=== PATIENT | female | born 1985 | race Caucasian/White ===

== ENCOUNTER 2016-06-09 21:00 | Emergency (ER) | payer OTHER ==
[~2016-06-09] VITALS: Ht 165.1 cm; Wt 133.8 kg
[2016-06-09] MEDS ORDERED: NEXP1IMP SC (21:13)
[2016-06-09] MEDS ORDERED: BUSP5TA PO (21:13)
[2016-06-09] MEDS ORDERED: ONDANSETRON 4MG/2ML VIAL (J2405) IV ONE (21:30)
[2016-06-09] MEDS ORDERED: KETOROLAC 30 MG/ML VIAL (J1885) IV ONE (21:30)
[2016-06-09 22:00] LABS: BASO # 0.1 K/mm3 (0.0-0.2); BASO % 0.7 % (0.0-1.0); EOS # 0.4 K/mm3 (0.0-0.50); EOS % 4.2 % (0.0-3.0); LARGE UNSTAINED CELL # 0.1 K/mm3 (0.0-0.4); LARGE UNSTAINED CELL % 1.2 % (0.0-4.0); LYMPH # 2.6 K/mm3 (1.5-6.5); LYMPH % 26.7 % (24.0-44.0); MEAN CORPUSCULAR HEMOGLOBIN 29.3 pg (27.0-33.0); MEAN CORPUSCULAR HGB CONC 33.1 g/dl (32.0-36.5); MEAN CORPUSCULAR VOLUME 88.4 fl (80.0-96.0); MONO # 0.5 K/mm3 (0.0-0.8); MONO % 4.9 % (0.0-5.0); NEUTROPHILS # 5.8 K/mm3 (1.8-7.7); NEUTROPHILS % 62.3 % (36.0-66.0); PLATELET COUNT, AUTOMATED 317 k/mm3 (150-450); RED CELL DISTRIBUTION WIDTH 13.5 % (11.5-14.5); WHITE BLOOD COUNT 9.2 K/mm3 (4.0-10.0)
[2016-06-09 22:08] LABS: CONTROL LINE HCG INT CTR LINE PRESENT
[2016-06-09 22:15] LABS: ALBUMIN 3.8 GM/DL (3.2-5.2); ALBUMIN/GLOBULIN RATIO 1.03 (1.00-1.93); ALKALINE PHOSPHATASE 123 U/L (45-117); ALT/SGPT 30 U/L (12-78); ANION GAP 9 MEQ/L (8-16); AST/SGOT 16 U/L (15-37); BILIRUBIN,DIRECT 0.1 MG/DL (0.0-0.2); BILIRUBIN,TOTAL 0.3 MG/DL (0.2-1.0); BLOOD UREA NITROGEN 13 MG/DL (7-18); CALCIUM LEVEL 8.2 MG/DL (8.5-10.1); CARBON DIOXIDE LEVEL 27 MEQ/L (21-32); CHLORIDE LEVEL 105 MEQ/L (98-107); CREATININE FOR GFR 0.89 MG/DL (0.55-1.02); GLOMERULAR FILTRATION RATE > 60.0 (>60); GLUCOSE, FASTING 96 MG/DL (70-105); POTASSIUM SERUM 3.9 MEQ/L (3.5-5.1); SODIUM LEVEL 141 MEQ/L (136-145); TOTAL PROTEIN 7.5 GM/DL (6.4-8.2)
--- NOTE | 2016-06-09 23:10 | REPUSA ---
CT of the abdomen and pelvis without contrast Clinical statement: Pain. Technique: Multiple axial CT images were obtained from the base of the lungs to the floor of the pelv is utilizing 5 mm axial slices without administration of contrast. Coronal and sagittal reconstructio ns were also obtained. No comparison is available. Findings: Chest: The visualized lung bases are clear. Abdomen: The kidneys are normal in size bilaterally. There is no evidence of hydronephrosis. Multiple tiny stones are seen in the left kidney measuring up to 1 mm. The liver, spleen, pancreas, gallbladd er and adrenal glands are unremarkable. The aorta demonstrates normal caliber and contour. There is n o abdominal lymphadenopathy or ascites. Pelvis: The bowel is unremarkable, with no obstructive or inflammatory changes. The appendix is nick l. The urinary bladder is within normal limits. There is no pelvic lymphadenopathy or ascites. There is a low attenuation lesion in the right adnexa, measuring 3.3 x 3.7 cm. The other pelvic structures appear unremarkable. Bones: There are no suspicious osseous abnormalities seen. Impression: 1. No evidence of hydronephrosis. Nonobstructing left renal nephrolithiasis. 2. Simple right ovarian cyst. 3. No obstructive or inflammatory bowel changes.
[2016-06-09] MEDS ORDERED: CIPROFLOXACIN 500 MG TAB PO ONE (23:15)
[2016-06-09] MEDS ORDERED: CIPR500T89 PO (23:16)
[2016-06-09] MEDS ORDERED: IBUP600T26 PO (23:16)
[2016-06-09 23:31] VITALS: BP 110/62
== END 2016-06-09 23:33 | disposition home or self-care (01) ==
LOC: M ED 21:40
DX: N39.0 Urinary tract infection, site not specified (principal); Z79.899 Other long term (current) drug therapy; Z79.3 Long term (current) use of hormonal contraceptives; F17.210 Nicotine dependence, cigarettes, uncomplicated

== ENCOUNTER 2016-08-11 14:21 | Emergency (ER) | payer OTHER ==
[~2016-08-11] VITALS: Ht 165.1 cm; Wt 136.7 kg
[~2016-08-11 14:21] MED LIST: BUSP5TA PO; CIPR-249 PO; IBUP-1022 PO; NEXP1IMP SC
[2016-08-11] MEDS ORDERED: KETOROLAC 60 MG/2 ML VIAL (J1885) IM ONE (15:00)
--- NOTE | 2016-08-11 15:39 | REP ---
Clinical: Trauma. Technique: AP, lateral, bilateral oblique views of the left ankle. Findings: Soft tissue swelling noted. No acute fracture or dislocation. Joint spaces and ankle mortise intact. Impression: Soft-tissue swelling. No acute fracture or dislocation. Signed by Jamie Isaacs MD 08/11/2016 03:30 P
--- NOTE | 2016-08-11 15:40 | REP ---
Clinical: Trauma. Technique: AP, lateral, bilateral oblique views left foot . Findings: The osseous structures and joint spaces are intact and normal. There is no evidence for acute fracture or dislocation. Surrounding soft tissues are unremarkable. No subcutaneous emphysema or radiodense foreign body. Impression: Normal left foot radiographs . No acute fracture or dislocation. Signed by Jamie Isaacs MD 08/11/2016 03:31 P
[2016-08-11 15:49] VITALS: BP 138/76
[2016-08-11] MEDS ORDERED: PERC5TAB12 PO (16:04)
[2016-08-11] MEDS ORDERED: MOBI4TAB PO (16:04)
== END 2016-08-11 16:18 | disposition home or self-care (01) ==
LOC: M ED 14:21
DX: S93.402A Sprain of unspecified ligament of left ankle, initial encounter (principal); S93.602A Unspecified sprain of left foot, initial encounter; X50.1XXA Overexertion from prolonged static or awkward postures, initial encounter; Y92.099 Unspecified place in other non-institutional residence as the place of occurrence of the external cause; Y93.01 Activity, walking, marching and hiking; Y99.9 Unspecified external cause status

== ENCOUNTER → 2016-10-26 | Outpatient (CLI) | payer OTHER ==
[~2016-10-26] MED LIST changes: +MOBI4TAB PO; +PERC5TAB12 PO
--- NOTE | 2016-10-26 11:15 | REP ---
MRI RIGHT KNEE: TECHNIQUE: Axial proton density fat saturation, sagittal proton density T2 STIR, water excitation, coronal proton density, proton density fat saturation. Menisci appear intact with no evidence of a meniscal tear. The cruciate and collateral ligaments are intact. The extensor mechanism is intact. There does appear to be mild to moderate edema and mild fluid in the soft tissues anterior to the insertion site of the inferior patellar tendon, which may represent some degree of bursitis at this location. No osteochondral defect is seen. There is no bone marrow edema or occult fracture. There is a small joint effusion with a tiny amount of fluid extending into the medial popliteal fossa. IMPRESSION: No meniscal tear. Cruciate and collateral ligaments intact. Findings suggesting possible bursitis just anterior the distal patellar tendon. Small joint effusion. Signed by Pedro Subramanian MD 10/26/2016 01:42 P
== END ==
LOC: M RAD 09:08
PROVIDERS: ATTEND Orthopaedic Surgery
DX: M25.561 Pain in right knee (principal)

== ENCOUNTER 2017-02-15 09:30 | Day surgery (SDC) | payer OTHER ==
[2017-02-15] MEDS: LR 1,000 ML IV (10:10)
[2017-02-15] MEDS ORDERED: ONDANSETRON 4MG/2ML VIAL (J2405) As Ordered (10:21)
[2017-02-15] MEDS ORDERED: MIDAZOLAM INJ 2 MG/2 ML VIAL (J2250) As Ordered (10:21)
[2017-02-15] MEDS ORDERED: dexameTHASONE 4 MG/ML 1ML VIAL (J1100) As Ordered (10:21)
[2017-02-15] MEDS ORDERED: LIDOCAINE 2% INJ 100 MG/5 ML SDV (FOR ANES.) As Ordered (10:21)
[2017-02-15] MEDS ORDERED: PROPOFOL 200 MG/20 ML VIAL As Ordered ×3 (10:21→13:17)
[2017-02-15] MEDS ORDERED: fentaNYL 100 MCG/2 ML INJECTION (J3010) As Ordered (10:22)
[2017-02-15 10:23] LABS: CONTROL LINE UCG INT CTR LINE PRESENT; URINE PREG TEST NEGATIVE (NEGATIVE)
[2017-02-15] MEDS: LIDOCAINE 1% MDV 20ML VIAL As Ordered (12:30)
[2017-02-15] MEDS: BUPIVACAINE HCL 0.5% 10 ML VIAL As Ordered (12:30)
[2017-02-15] MEDS: dexameTHASONE 4 MG/ML 1ML VIAL (J1100) As Ordered (13:38)
== END 2017-02-15 14:40 | disposition home or self-care (01) ==
LOC: M SDC 09:30
DX: G57.52 Tarsal tunnel syndrome, left lower limb (principal); I49.9 Cardiac arrhythmia, unspecified; K21.9 Gastro-esophageal reflux disease without esophagitis; F41.9 Anxiety disorder, unspecified; R35.0 Frequency of micturition; E66.01 Morbid (severe) obesity due to excess calories; Z68.42 Body mass index [BMI] 45.0-49.9, adult; Z79.899 Other long term (current) drug therapy; Z87.09 Personal history of other diseases of the respiratory system; Z97.5 Presence of (intrauterine) contraceptive device; Z72.0 Tobacco use
CPT/HCPCS: 28035

== ENCOUNTER → 2019-05-29 | Outpatient (REF) | payer OTHER, SELFPAY ==
[~2019-05-29] MED LIST changes: +DETR1TAB5 PO; +FLOM0.4C39; +GABA-843; +HYDR-3713 PO; +PROV108A
[2019-05-29 18:07] LABS: APPEARANCE, URINE CLEAR (CLEAR); BACTERIA, URINE AUTO NEGATIVE (NEGATIVE); BILIRUBIN, URINE AUTO NEGATIVE (NEGATIVE); BLOOD, URINE BLOOD NEGATIVE (NEGATIVE); COLOR, URINE STRAW (YELLOW); GLUCOSE, URINE (UA) AUTO NEGATIVE (NEGATIVE); KETONE, URINE AUTO NEGATIVE (NEGATIVE); LEUKOCYTE ESTERASE, URINE AUTO NEGATIVE (NEGATIVE); NITRITE, URINE AUTO NEGATIVE (NEGATIVE); PROTEIN, URINE AUTO NEGATIVE (NEGATIVE); RBC, URINE AUTO 0 /HPF (0-3); SPECIFIC GRAVITY URINE AUTO 1.006 (1.002-1.035); SQUAMOUS EPITHELIAL CELL UR AU 1 /HPF (0-6); UROBILINOGEN, URINE AUTO 0.2 mg/dL (0.0-2.0); WBC, URINE AUTO 0 /HPF (0-3)
== END ==
LOC: M SMT 16:44
PROVIDERS: ATTEND Nurse Practitioner Women's Health
DX: R39.15 Urgency of urination (principal)

== ENCOUNTER → 2019-06-07 | Outpatient (CLI) | payer OTHER ==
--- NOTE | 2019-06-07 09:40 | REP ---
REASON: History of renal calculi. COMPARISON: 06/09/2016, the only prior. The lung bases are clear and unchanged. Limited evaluation of the solid intra-abdominal organs and gallbladder show no gross abnormalities or significant changes from the prior exam. Limited evaluation of the pancreas and adrenal glands show no gross abnormalities or significant changes from the prior exam. IMPRESSION: Seen in the left kidney, there is a 2 mm sized calcific density in the anterior polar region unchanged from the prior exam. There are no right nephroliths. There is no ureterolithiasis. There is no hydronephrosis or hydroureter. There are no urinary bladder calcifications. Limited evaluation of the intra-abdominal and intrapelvic bowel loops and their mesenteries show no gross abnormalities. There is no free fluid or free air in the abdomen or pelvis. Limited evaluation of the abdominal aorta and paraaortic regions show no gross abnormalities or significant changed from the prior exam. There is no evidence of an intra-abdominal or intrapelvic mass or adenopathy. Bone window technique through the examination shows the osseous structures to be stable and intact. IMPRESSION: There is a tiny unchanged nonobstructing left nephrolith. The examination is otherwise unremarkable. Electronically Signed by Earl Berger DO 06/07/2019 10:04 A
== END ==
LOC: M RAD 08:02
PROVIDERS: ATTEND Nurse Practitioner Women's Health
DX: R10.9 Unspecified abdominal pain (principal); Z87.442 Personal history of urinary calculi

== ENCOUNTER → 2020-01-16 | Outpatient (REF) | payer OTHER, SELFPAY ==
[2020-01-16 14:13] LABS: APPEARANCE, URINE CLEAR (CLEAR); BACTERIA, URINE AUTO 1+ (NEGATIVE); BILIRUBIN, URINE AUTO NEGATIVE (NEGATIVE); BLOOD, URINE BLOOD NEGATIVE (NEGATIVE); COLOR, URINE YELLOW (YELLOW); GLUCOSE, URINE (UA) AUTO NEGATIVE (NEGATIVE); KETONE, URINE AUTO NEGATIVE (NEGATIVE); LEUKOCYTE ESTERASE, URINE AUTO TRACE (NEGATIVE); MUCUS, URINE SMALL (NEGATIVE); NITRITE, URINE AUTO NEGATIVE (NEGATIVE); PROTEIN, URINE AUTO NEGATIVE (NEGATIVE); RBC, URINE AUTO 0 /HPF (0-3); SPECIFIC GRAVITY URINE AUTO 1.016 (1.002-1.035); SQUAMOUS EPITHELIAL CELL UR AU 2 /HPF (0-6); UROBILINOGEN, URINE AUTO 0.2 mg/dL (0.0-2.0); WBC, URINE AUTO 1 /HPF (0-3)
== END ==
LOC: M SMT 13:25
PROVIDERS: ATTEND Nurse Practitioner Women's Health
DX: R35.0 Frequency of micturition (principal)

== ENCOUNTER 2021-11-09 18:45 | Emergency (ER) | payer OTHER, SELFPAY ==
[~2021-11-09] VITALS: Ht 165.1 cm; Wt 134.9 kg
[~2021-11-09 18:45] MED LIST changes: +ALBU6.7H6; +ETON68IM SC; +GABA-282; -GABA-843; -NEXP1IMP SC; -PROV108A
[2021-11-09 20:41] LABS: BASO # 0.1 10^3/uL (0.0-0.2); BASO % 0.6 % (0.0-1.0); EOS # 0.4 10^3/uL (0.0-0.5); EOS % 3.3 % (0.0-3.0); HEMATOCRIT 44.2 % (36.0-47.0); HEMOGLOBIN 14.4 g/dl (12.0-15.5); LYMPH # 3.3 10^3/uL (1.5-5.0); LYMPH % 30.7 % (24.0-44.0); MEAN CORPUSCULAR HEMOGLOBIN 29.4 pg (27.0-33.0); MEAN CORPUSCULAR HGB CONC 32.6 g/dl (32.0-36.5); MEAN CORPUSCULAR VOLUME 90.4 fl (80.0-96.0); MONO # 0.8 10^3/uL (0.0-0.8); MONO % 7.3 % (2.0-8.0); NEUTROPHILS # 6.2 10^3/uL (1.5-8.5); NEUTROPHILS % 57.8 % (36.0-66.0); PLATELET COUNT, AUTOMATED 345 10^3/uL (150-450); RED BLOOD COUNT 4.89 10^6/uL (4.00-5.40); WHITE BLOOD COUNT 10.8 10^3/uL (4.0-10.0)
[2021-11-09 21:13] LABS: ALBUMIN 3.8 GM/DL (3.2-5.2); ALT/SGPT 56 U/L (12-78); BILIRUBIN,DIRECT 0.1 MG/DL (0.0-0.2); BILIRUBIN,TOTAL 0.4 MG/DL (0.2-1.0); BLOOD UREA NITROGEN 10 MG/DL (7-18); CALCIUM LEVEL 8.9 MG/DL (8.5-10.1); CARBON DIOXIDE LEVEL 29 MEQ/L (21-32); CHLORIDE LEVEL 106 MEQ/L (98-107); GLOMERULAR FILTRATION RATE > 60.0 (>60); GLUCOSE, FASTING 87 MG/DL (70-100); LIPASE 70 U/L (73-393); SODIUM LEVEL 138 MEQ/L (136-145); TOTAL PROTEIN 7.5 GM/DL (6.4-8.2)
[2021-11-09 21:14] LABS: HCG, SERUM QUALITATIVE NEGATIVE (NEGATIVE)
[2021-11-09] MEDS ORDERED: KETOROLAC 30 MG/ML 1ML VIAL IM ONE (22:05)
[2021-11-09 23:30] VITALS: BP 120/69
[2021-11-10] MEDS ORDERED: KETO10TAB PO (00:41)
[2021-11-10] MEDS ORDERED: FLOM0.4C39 PO (00:41)
[2021-11-10] MEDS ORDERED: ONDA4TAB6 PO (00:43)
== END 2021-11-10 01:11 | disposition home or self-care (01) ==
LOC: M ED 18:45
DX: N20.0 Calculus of kidney (principal); N83.299 Other ovarian cyst, unspecified side; K21.9 Gastro-esophageal reflux disease without esophagitis; Z87.440 Personal history of urinary (tract) infections; R35.0 Frequency of micturition; R39.81 Functional urinary incontinence; F17.200 Nicotine dependence, unspecified, uncomplicated; Z79.899 Other long term (current) drug therapy
CPT/HCPCS: 74176; 80048; 80076; 81000; 81015; 83690; 84703; 85025; 96372; 99283; J1885

== ENCOUNTER → 2021-11-30 | Outpatient (CLI) | payer OTHER ==
[~2021-11-30] MED LIST changes: +FLOM0.4C39 PO; +KETO10TAB PO; +ONDA4TAB6 PO
== END ==
LOC: M WHC 13:38
PROVIDERS: ATTEND Obstetrics & Gynecology
DX: N93.9 Abnormal uterine and vaginal bleeding, unspecified (principal)

== ENCOUNTER → 2022-01-17 | Outpatient (REF) | payer OTHER | LOC: M SFHCWAGY 17:00 | PROVIDERS: ATTEND Obstetrics & Gynecology | DX: N93.9 Abnormal uterine and vaginal bleeding, unspecified (principal); N85.00 Endometrial hyperplasia, unspecified ==

== ENCOUNTER → 2022-04-11 | Outpatient (CLI) | payer OTHER ==
[~2022-04-11] MED LIST changes: +COLA100C5 PO; +DULO1CAP5 PO; +GABA-283 PO; +IBUP80TA PO; +NAPR-885 PO; +PERCOCET PO; +TIZA10TA PO
== END ==
LOC: M LABSMTC 09:14
PROVIDERS: ATTEND Anesthesiology
DX: Z01.812 Encounter for preprocedural laboratory examination (principal)

== ENCOUNTER 2022-04-13 08:41 | Observation (INO) | payer OTHER ==
[~2022-04-13] VITALS: Ht 165.1 cm; Wt 137.0 kg
[~2022-04-13 08:41] MED LIST changes: -COLA100C5 PO; +HYDROmorphone HCL 2MG/ML 1ML VIAL As Ordered ONE; -IBUP80TA PO; +KETOROLAC 60MG 2ML VIAL As Ordered ONE; +LIDOCAINE 2% 100MG/5ML SDV (FOR ANES.) As Ordered ONE; +LR 1,000 ML IV SCH; +MIDAZOLAM INJ 2MG/2ML VIAL As Ordered ONE; +ONDANSETRON 4MG 2ML VIAL As Ordered ONE; -PERCOCET PO; +ROCURONIUM BROMIDE 50MG/5ML VIAL As Ordered ONE; +ceFAZolin SOD 1 GM in D5W MINI-BAG PLUS 50 ML IV ONE; +ceFAZolin SOD 2 GM in IV 1 EA IV ONE; +fentaNYL 100 MCG/2 ML INJECTION As Ordered ONE; +propofoL 200 MG/20 ML VIAL As Ordered ONE
[2022-04-13] MEDS ORDERED: LR 1,000 ML IV SCH ×3 (09:10→12:10)
[2022-04-13] MEDS ORDERED: BUPIVACAINE HCL 0.25% 30ML VIAL As Ordered ONE (09:29)
[2022-04-13] MEDS ORDERED: METHYLENE BLUE 0.5% (5MG/ML) 10 ML AMP (PROVAYBLUE) As Ordered ONE (09:30)
[2022-04-13] MEDS ORDERED: ACETAMINOPHEN 1000MG 100ML IV BAG As Ordered ONE (09:35)
[2022-04-13 09:42] LABS: HEMATOCRIT 41.5 % (36.0-47.0); HEMOGLOBIN 13.4 g/dl (12.0-15.5); MEAN CORPUSCULAR HEMOGLOBIN 29.4 pg (27.0-33.0); MEAN CORPUSCULAR HGB CONC 32.3 g/dl (32.0-36.5); PLATELET COUNT, AUTOMATED 269 10^3/uL (150-450); RED BLOOD COUNT 4.56 10^6/uL (4.00-5.40); WHITE BLOOD COUNT 9.3 10^3/uL (4.0-10.0)
[2022-04-13] MEDS ORDERED: ePHEDrine SULFATE 25 MG/5 ML(5MG/ML) SYRINGE As Ordered ONE (10:39)
[2022-04-13] MEDS ORDERED: propofoL 200 MG/20 ML VIAL As Ordered ONE (10:39)
[2022-04-13] MEDS ORDERED: PHENYLephrine 500MCG 5ML (100MCG/ML) SYRINGE As Ordered ONE (10:39)
[2022-04-13] MEDS ORDERED: SUGAMMADEX SODIUM 500 MG/5 ML VIAL (BRIDION) As Ordered ONE (10:52)
[2022-04-13] MEDS ORDERED: fentaNYL 100 MCG/2 ML INJECTION IV PRN (12:05)
[2022-04-13] MEDS ORDERED: ONDANSETRON 4MG 2ML VIAL IV PRN ×2 (12:05→12:10)
[2022-04-13] MEDS ORDERED: oxyCODONE 5MG TAB PO PRN (12:05)
[2022-04-13] MEDS ORDERED: HYDROMORPHONE HCL 0.5 MG/ 0.5 ML SYRINGE IV PRN (12:05)
[2022-04-13] MEDS ORDERED: MORPHINE 2 MG/ML 1ML VIAL IV PRN (12:15)
[2022-04-13] MEDS ORDERED: PERCOCET 5MG/325MG TAB PO PRN ×2 (12:15)
[2022-04-13] MEDS ORDERED: IBUP80TA PO (12:20)
[2022-04-13] MEDS ORDERED: PERCOCET PO (12:20)
[2022-04-13] MEDS ORDERED: COLA100C5 PO (12:20)
[2022-04-13 12:47] VITALS: BP 123/60
[2022-04-13] MEDS ORDERED: KETOROLAC 30 MG/ML 1ML VIAL IV SCH (18:00)
[2022-04-13] MEDS ORDERED: DOCUSATE SODIUM 100MG CAPSULE PO SCH (21:00)
[2022-04-14] MEDS ORDERED: IBUPROFEN 800 MG TAB PO SCH (14:00)
== END 2022-04-13 17:13 | disposition home or self-care (01) ==
LOC: M SDC 08:41 → M MS5PR 12:10 → M MSPAV 13:24
PROVIDERS: ADMIT Obstetrics & Gynecology; ATTEND Obstetrics & Gynecology
DX: N93.9 Abnormal uterine and vaginal bleeding, unspecified (principal); R10.2 Pelvic and perineal pain; F17.210 Nicotine dependence, cigarettes, uncomplicated; Z79.899 Other long term (current) drug therapy; F41.9 Anxiety disorder, unspecified
CPT/HCPCS: 11982; 36415; 58571; 81025; 85027; 86850; 86900; 86901; 88307; J0131; J0690; J1100; J1170; J1885; J2250; J2370; J2405; J3010; Q9968; S0020; S2900